=== PATIENT | male | born 1960 | race Caucasian/White ===

== ENCOUNTER 2018-04-15 10:00 | Outpatient (RCR) | payer MEDICAID, SELFPAY ==
--- NOTE | 2018-03-17 08:00 | PTTR_ITS ---
DATE: 03/17/18 SUBJECTIVE: Doing well with current exercises and feels like he is getting stronger. OBJECTIVE: Manual therapy: (92379p4). Mobilization of lumbopelvic region consisting of stretching of hamstrings, SKTC , piriformis, ITB and prone quads and hip flexors for 3 reps each x 20 seconds. STM to bilateral LB paraspinals and pelvic brim. Grade 1/2 PA mobs to lumbar vertebrae while in prone. Therapeutic procedures (79863o6). * x See flow sheet: Focus on core / hip stabilizers in supine, prone and quadruped on therapy ball. Upgraded planks to extended elbows today without complaints. * x Provided skilled instruction in proper exercise performance * x Provided skilled manual cues to facilitate proper muscle recruitment and/ or movement pattern * Ended session with spot cold to low back vertebrae and global MHP x 12 minutes while in prone position, at no charge. Direct treatment time: 50 minutes Total treatment time: 60 minutes
--- NOTE | 2018-03-19 09:30 | PTTR_ITS ---
DATE: 03/19/18 SUBJECTIVE: Drew indicates that he continues to note improvement being made with his PT treatments. Continues to note stiffness that seems to be less intense and less often. Manual therapy: (75251h6). Did receive soft tissue stretching of bilateral hamstrings, single knee to chest, piriformis, ITB in prone quad hip flexor stretching for 3 reps x20-30 seconds each, soft tissue mobilization throughout the low back was performed while in prone position utilizing tendon massage along the lumbar vertebra, iliac crest and cross friction to bilateral paraspinals. Utilization of grade 2 PA mobs throughout the lumbar region was also performed. Therapeutic procedures (20920c7). * x See flow sheet: for details. Did perform 10 reps of prone push up at start of his program. Focus of Therex activities was core stabilization * x Provided skilled instruction in proper exercise performance: * x Provided skilled manual cues to facilitate proper muscle recruitment and/ or movement pattern: He did perform an addition of 15 mins of wellness with assistive personnel. Ended with spot cold to the low back with moist heat throughout remaining mid to low back x12 mins in prone position at no charge. Direct treatment time: 30 mins Total treatment time: 55 mins SG/dl
--- NOTE | 2018-03-23 15:45 | PTTR_ITS ---
DATE: 03/23/18 SUBJECTIVE: Indicated he is continuing to note progress with his with his strength and core stability with ongoing PT services. Under a lot of stress at home with family issues, he knows that this influences his back irritation. OBJECTIVE: Manual therapy: (10065o9). Soft tissue stretching of bilateral hamstrings, SKTC, piriformis, ITB and prone quad and hip flexor stretches. STM to bilateral LB paraspinals and pelvic brim utilizing tendon massage and CFM. Transitioned to prone for grade 2 PA mobs to lumbar vertebrae. Performed 10 reps of prone press ups prior to continuing with ther ex. Therapeutic procedures ([id number]). * x HEP review: Instructed to add prone superman exercise to HEP. * x See flow sheet: Focus on core and hip stabilization. Added treadmill and standing posturals to program today. * x Provided skilled instruction in proper exercise performance * x Provided skilled manual cues to facilitate proper muscle recruitment and/ or movement pattern * Ended session with spot cold to low back with global MHP to surrounding tissue x 10 minutes. Direct treatment time: 50 minutes Total treatment time: 60 minutes
--- NOTE | 2018-03-26 11:15 | PTTR_ITS ---
DATE: 03/26/18 SUBJECTIVE: Patient arrived 15 minutes late to appointment. Reports he feels like he is 75% better since starting PT. He has no pain and no symptoms down the legs. He feels like he is more flexible but still feels stiff. He states he can now sit, stand, and walk for about an hour before his back starts bothering him. He states driving is okay. Still has difficulty with gardening and cleaning. He states he feels like his symptoms are still associated with his psychological symptoms. He has been compliant with his HEP. OBJECTIVE: Manual therapy: ([id number]). Performed single knee to chest, hamstring, ITB, piriformis, and hip flexor/quadriceps stretches in modified Forrest position. Held on all STM due to level of improvement. Therapeutic procedures (06387c1). [X] HEP review: Patient instructed to add superman s and bridges to HEP. [X] See flow sheet: Continued progressing core stabilization program. [X] Provided skilled instruction in proper exercise performance: for proper body mechanics. [X] Provided skilled manual cues to facilitate proper muscle recruitment and/or movement pattern: Moist heat pack with cold spot x 10 minutes to lower back in prone. Instructed to follow up one time next week. Direct treatment time: 30 minutes Total treatment time: 40 minutes Bindu Barth, SPT Yessy Fuller,MPT
--- NOTE | 2018-04-02 14:30 | PTTR_ITS ---
DATE: 04/02/18 SUBJECTIVE: Drew indicates today that he continues to hold up fairly well. Was complaining of sensitivity in the ball of his R foot which comes and goes, questions whether this is due to its footwear, currently does not own a pair of sneakers due to financial issues. Does have a pair of orthotics that was made for him several years ago, but has not really been wearing them due to going barefooted most of the summer. Manual therapy: (95587p0). Did receive mobilization of the lumbopelvic region including single knee to chest, stretching of the hamstring, ITB, piriformis and Forrest test position, or modified Forrest test position, hip flexor, quadricep stretches for 3 reps x20-30 seconds each. Therapeutic procedures (92734o2). * x5 See flow sheet: focus was on core and hip stabilization exercises. * X Provided skilled instruction in proper exercise performance: * X Provided skilled manual cues to facilitate proper muscle recruitment and/ or movement pattern: Did also incorporate standing UBE activity today with core engagement x6 mins. Ended treatment with spot cold to the low back with global moist heat throughout the mid to low back region x10 mins while in prone. Has been instructed to schedule for 1 time next week for continued instruction in core stabilization program. Direct treatment time: 45 mins Total treatment time: 55 mins SG/dl
--- NOTE | 2018-04-09 13:28 | NT_ITS ---
April 09, 2018 Drew contacted dept for he was going to be 15 minutes late for his scheduled appt. Questioned if this was going to work for our schedule. Rescheduled due to the conflict in schedule.
--- NOTE | 2018-04-15 10:15 | PTTR_ITS ---
DATE: April 15, 2018 SUBJECTIVE: Drew reports 80% improvement since beginning PT. He notes of occasional irritation into his right hip and knee however otherwise has been managing his symptoms well with HEP. He feels that he has returned to his normal level of activities. OBJECTIVE: Patient showed 15 minutes late for todays scheduled appt. Manual therapy: Upon reassessment demonstrates WNL lumbopelvic ROM. Demonstrates 5/5 LE strength. He is able to heel and toe walk without dysfunction. Therapeutic procedures ([id number]). * X HEP review: Upgraded HEP to incorporate PRE for his core musculature. See handouts in chart. Issued resistance bands to proximal hip stability and global LE strengthening. * X Provided skilled instruction in proper exercise performance: promoting body mechanics and postural awareness. * Provided skilled manual cues to facilitate proper muscle recruitment and/ or movement pattern: avoiding compensatory movement patterns. Issued some distal ITB stretches and recommended use of a foam roller for self mobilization of the right ITB. At this time feel that Drew can proceed with strong HEP. Plan to discharge from our care at this time. Direct treatment time: 15 minutes Total treatment time: 15 minutes
== END 2018-04-16 23:59 | disposition home or self-care (01) ==
LOC: PT 10:00
PROVIDERS: PCP Nurse Practitioner; Referring Provider Nurse Practitioner; Visit Provider Nurse Practitioner
DX: M54.5 Low back pain (principal); M54.16 Radiculopathy, lumbar region
CPT/HCPCS: 97110; 97140

== ENCOUNTER 2019-02-10 00:26 | Outpatient (CLI) | payer MEDICAID, SELFPAY ==
--- NOTE | 2019-02-10 08:30 | ETT_ITS ---
*[facility]* *[facility]* [address] [place] [address] Stress Electrocardiography Bharat protocol Date of study: 02/10/2019 *PATIENT PRESENTATION* Height: 182.9cm (72in) Blood Pressure: Weight: 97.7kg (215lb) BSA: 2.25m^2 Referring physician: Petra Mckee Ordering physician: Petra Mckee Impressions: No ischemic EKG changes. Frequent PVC and nsVT runs. Very good exercise capacity. Summary: 1. Stress ECG conclusions: The stress ECG is negative. The specificity of this test is limited by resting ECG abnormalities. The sensitivity of this test is limited by significant motion artifact. Frequent ventricular ectopy. 2. Stress: The target heart rate was achieved. There is a normal resting blood pressure with an appropriate response to stress. The patient experienced no chest pain during stress. Exercise capacity is above normal for age. Indication: R94.31. History: REASON FOR VISIT: ABNORMAL EKG. PT DENIES ANY HISTORY OF CHEST PAINS/PRESSURE. PT REPORTS HE IS CURRENTLY ON DISABILITY ALTHOUGH IS PHYSICALLY ACTIVE. Risk factors: [employer]NA [employer]. FATHER OF A MYOCARDIAL INFARCTION IN HIS EARLY 60'S. Family history of coronary artery disease. Current tobacco use. Diabetes mellitus. Cholesterol: 195mg/dl. HDL: 51mg/dl. LDL: 130mg/dl. Triglycerides: 63mg/dl. ALLERGIES: NO KNOWN DRUG ALLERGIES. MEDICATIONS: LEXAPRO 20 MG DAILY. Protocol: Bharat protocol. Baseline ECG: SINUS BRADYCARDIA. HR 47 BPM. Stress protocol: + +---+ + !Stage !HR !BP (mmHg) ! + +---+ + !Baseline supine !47 !130/76 (94) ! + +---+ + !Baseline standing !52 !130/78 (95) ! + +---+ + !Stage I; 1.7mph, 10degrees; 3 min !76 !142/80 (101)! + +---+ + !Stage II; 2.5mph, 12degrees; 3 min !89 !148/82 (104)! + +---+ + !Stage III; 3.4mph, 14degrees; 3 min!113!166/78 (107)! + +---+ + !Stage IV; 4.2mph, 16degrees; 3 min !124!178/80 (113)! + +---+ + !Stage V; 5mph, 18degrees; 3 min !152! ! + +---+ + !Peak stress !156! ! + +---+ + !Recovery; 1 min !108!200/80 (120)! + +---+ + !Recovery; 3 min !82 !160/62 (95) ! + +---+ + !Recovery; 7 min !75 !140/82 (101)! + +---+ + * Stress results: Maximal heart rate during stress was 156bpm (95% of maximal predicted heart rate). The maximal predicted heart rate was 164bpm. The target heart rate was achieved. There is a normal resting blood pressure with an appropriate response to stress. The rate-pressure product for the peak heart rate and blood pressure was 46881nq Hg/min. The patient experienced no chest pain during stress. Exercise capacity is above normal for age. Stress ECG: TREADMILL PORTION OF STRESS TEST ENDED IN 14 MINUTES & 1 SECOND. NORMAL HEART RATE AND BLOOD PRESSURE RESPONSE TO EXERCISE MAX HR = 156 % OF TARGET = 95 FREQUENT PVCs IN COUPLETS AND RUNS. 6 BEAT RUNS OF V-TACH NOTED AT 2 MINUTES RECOVERY TIME. APPROXIMATE METS ACHIEVED = 14.86 NO ANGINA NO SIGNIFICANT ST SEGMENT CHANGES ABOVE AVERAGE FUNCTIONAL CAPACITY FOR EXERCISE The stress ECG is negative. The specificity of this test is limited by resting ECG abnormalities. The sensitivity of this test is limited by significant motion artifact. Frequent ventricular ectopy. Multiple episodes of nonsustained ventricular tachycardia. Study data: Devora Lo MD supervised and was readily available during the procedure. This study was interpreted by [facility]. Study status: Routine. Consent: The risks, benefits, and alternatives to the procedure were explained to the patient and informed consent was obtained. Procedure: Initial setup. A baseline ECG was recorded. Surface ECG leads and manual cuff blood pressure measurements were monitored. Heart sounds: Normal. Lung sounds: Normal. Treadmill exercise testing was performed using the Bharat protocol. Study completion: The patient tolerated the procedure well and was discharged from the lab. Discharge: The patient left the laboratory in stable condition. Birthdate: Patient birthdate: 1960. Sex: Gender: male. Study date: Study date: 02/10/2019. Study time: 00:01 AM. Signature Documentation: The Stress ECG portion of this study was interpreted by Devora Lo MD. Electronically signed by Devora Lo 02/10/2019 16:47
[2019-02-10 08:43] LABS: HCT 45.5 % (40.0-50.0); HGB 15.3 g/dL (13.5-17.5); Mean Corp. HGB Concentration 33.6 g/dL (32.0-36.0); Mean Corpuscular Hemoglobin 29.5 pg (27.0-33.0); Mean Corpuscular Volume 87.8 fL (80-95); Mean Platelet Volume 9.1 fL (8.0-11.0); Platelet Count 261 x1000/uL (130-400); RBC 5.18 m/cumm (4.50-6.00); RBC Distribution Width 13.1 % (11.8-14.1)
[2019-02-10 09:41] LABS: Hemoglobin A1C 5.8 % (4.5-6.2)
[2019-02-10 09:52] LABS: ALT 26 U/L (12-78); AST 15 U/L (15-37); Albumin 3.8 g/dL (3.4-5.0); Alkaline Phosphatase 59 U/L (46-116); BUN 21 mg/dL (7-18); Bilirubin, Total 0.3 mg/dL (0.2-1.0); CREATININE 0.93 mg/dL (0.70-1.30); Calcium 8.6 mg/dL (8.5-10.1); Calculated LDL 152 mg/dL; Chloride 107 mmol/L (98-107); Cholesterol 216 mg/dL (50-200); Glucose 110 mg/dL (70-100); HDL Cholesterol 39 mg/dL (40-60); Potassium 4.8 mmol/L (3.5-5.1); Sodium 141 mmol/L (136-145); TSH (W/Ref FT4) 3.62 uIU/mL (0.358-3.74); Total Protein 6.7 g/dL (6.4-8.2); Triglyceride 129 mg/dL (30-150)
[2019-02-10 09:58] LABS: Vitamin D 25 Total 37.4 ng/ml (30-100)
[2019-02-14 09:24] LABS: Testosterone, Total 480 ng/dL (240-950)
== END 2019-02-10 00:46 ==
PROVIDERS: PCP Nurse Practitioner; Visit Provider Nurse Practitioner
DX: R94.31 Abnormal electrocardiogram [ECG] [EKG] (principal); E78.00 Pure hypercholesterolemia, unspecified; F41.9 Anxiety disorder, unspecified; N52.9 Male erectile dysfunction, unspecified; I10 Essential (primary) hypertension; E11.9 Type 2 diabetes mellitus without complications; E55.9 Vitamin D deficiency, unspecified; F17.200 Nicotine dependence, unspecified, uncomplicated; Z82.49 Family history of ischemic heart disease and other diseases of the circulatory system
CPT/HCPCS: 36415; 80053; 80061; 82306; 83721; 84403; 85027; 83036; 84443; 93017

== ENCOUNTER → 2020-03-20 10:32 | Outpatient (BNVA) | payer MEDICARE, MEDICAID, SELFPAY | PROVIDERS: PCP Nurse Practitioner; Referring Provider Nurse Practitioner; Visit Provider Urology | DX: R39.89 Other symptoms and signs involving the genitourinary system | CPT/HCPCS: 99442 ==

== ENCOUNTER 2020-04-01 18:10 | Emergency (ER) | payer MEDICARE, MEDICAID, SELFPAY ==
[2020-04-01] VITALS (62 sets, daily range): BP systolic 94–178; BP diastolic 40–86; PULSE 42–98; RESP 9–25; TEMP 36.5–36.6; O2SAT 96–99
--- NOTE | 2020-04-01 18:00 | RT.EKG_ITS ---
APPROVED REPORT Exam: Resting ECG Patient Location: E HR:50 bpm ECG Measurements Heart Rate 50 AXIS MI 177 P 43 QRSd 97 QRS -17 QT 417 T 21 QTc 379 Conclusion Sinus bradycardia.rate 50, Low voltage, extremity leads...all extremity leads inferior q wave
--- NOTE | 2020-04-01 18:15 | DI.RAD_ITS ---
EXAM: XR CHEST 2V PA LATERAL CLINICAL HISTORY: CP/SOB TECHNIQUE: 2D digital imaging was performed. COMPARISON: No exams were available for comparison FINDINGS: MEDIASTINUM: Normal. HEART: Normal. PULMONARY VASCULATURE: Normal. LUNGS: Clear. PLEURAL SPACE: No pleural effusion or pneumothorax. BONE:Normal. OTHER FINDINGS:Normal. IMPRESSION: No acute pulmonary findings. DATA REPOSITORY: RADIATION DOSE DELIVERED:
[2020-04-01 18:36] LABS: Abs Immature Grans 0.04 10^3/uL (0.0-0.06); Absolute Basophil Count 0.02 10^3/uL (0.0-0.2); Absolute Eosinophil Count 0.05 10^3/uL (0.0-0.7); Absolute Lymphocyte Count 1.74 10^3/uL (1.2-3.4); Absolute Monocyte Count 0.66 10^3/uL (0.1-0.8); Absolute Neutrophil Count 6.79 10^3/uL (1.2-6.7); Basophils % 0.2; Eosinophils % 0.5; HCT 44.6 % (40.0-50.0); HGB 15.1 g/dL (13.5-17.5); Immature Grans % 0.4; Lymphocytes % 18.7; MCH 29.5 pg (27.0-33.0); MCHC 33.9 % (32.0-36.0); MCV 87.1 fL (80-95); MPV 9.1 fL (8.0-11.0); Monocytes % 7.1; Neutrophils % 73.1; Nucleated RBC 0 %; Platelet Count 258 10^3/uL (130-400); RBC 5.12 10^6/uL (4.36-5.78); RDW 11.7 % (11.8-14.1); RDW-SD 37.9 fL
--- NOTE | 2020-04-01 18:46 | W.ED.GENAD ---
Discharge Plan Disposition Patient Disposition: [facility] Condition: Serious Discharge Details Chief Complaint: Chest Pain Clinical Impression: Non-ST elevation WI (NSTEMI) Primary Care Provider: Petra Mckee ED Provider: Aj Grace Home Meds and New Rx's Prescriptions: No Action escitalopram oxalate 10 mg tablet 10 mg PO DAILY Qty: 90 RF: 3 ibuprofen 400 mg tablet 400 mg PO Q6H PRN Qty: 120 RF: 3 tadalafil [Cialis] 20 mg tablet 20 mg PO DAILY PRN (Reason: sexual activity) Qty: 30 RF: 3 Medical Decision Making <Richard Marshall MD - Last Filed: 04/01/20 19:42> 59-year-old male who states he has had intermittent episodes of anterior chest tightness and pressure that seems to be worse with exertion over 2 to 3 weeks time. At times seems to be associated with exertional dyspnea that resolves with rest. No syncope. No recent illness. States to me that he no longer is taking prescribed medications, currently only using medical marijuana which he states he is eating. Note his medical problems include adjustment disorder, depression, anxiety, PTSD. He is afebrile and well-appearing. He has history of bradycardia in the past. Initial EKG shows inferior Q waves but no acute ST segment elevation and is unchanged versus comparison from February 07, 2019. Records reviewed including exercise stress test from February 10, 2019 which was negative but did note frequent PVCs. Patient placed on a special events manager, IV access established, referred for chest x-ray and laboratory testing: CBC, chemistries unremarkable. Troponin negative and his BNP is 137. Chest x-ray without acute findings. Patient to be observed and repeat/interval troponin obtained. Will sign the patient out to Dr. Grace, please see his note. Lab Data Lab results reviewed: Yes I reviewed the patient's lab results. Labs: Laboratory Results - last 24 hr 04/01/20 04/01/20 18:18 18:18 WBC 9.30 RBC 5.12 Hgb 15.1 Hct 44.6 MCV 87.1 MCH 29.5 MCHC 33.9 RDW 11.7 L Plt Count 258 MPV 9.1 Immature Gran % 0.4 Neutrophils % 73.1 Lymphocytes % 18.7 Monocytes % 7.1 Eosinophils % 0.5 Basophils % 0.2 Absolute Neutrophils 6.79 H Absolute Lymphocytes 1.74 Absolute Monocytes 0.66 Absolute Eosinophils 0.05 Absolute Basophils 0.02 Sodium 139 Potassium 4.0 Chloride 103 Carbon Dioxide 26.8 Anion Gap 9.2 BUN 10 Creatinine 0.84 Estimated GFR/1.73 m2 >= 60.00 Glucose 106 Calcium 9.0 Magnesium 2.1 Total Bilirubin 0.7 AST 21 ALT 23 Alkaline Phosphatase 42 L Troponin I 0.06 NT-Pro-B Natriuret Pep 137 Total Protein 7.4 Albumin 4.2 <Aj Grace, - Last Filed: 04/01/20 23:40> Case was signed out to me by my colleague Dr. Richard Marshall, please refer to his HPI, physical exam assessment and plan. At time of signout plan was to reevaluate after repeat EKG and repeat troponin. 4-hour troponin has returned, slightly elevated at 0.08, which is trending upwards. With the patient history of exertional shortness of breath and chest pain over the last few months notably worsening, climaxing over the last few days with a notably low threshold now for this exertional shortness of breath and chest pain I do feel that the patient is transitioning from a stable angina picture to an unstable angina picture. Repeat EKG is negative for acute change. Patient will be given full dose aspirin. Will contact [facility] for potential transfer. Currently the patient is without any chest pain or shortness of breath but even recently when getting up to go to the bathroom his symptoms resolved without mild exertion. The patient's cardiac risk factors include age, known high cholesterol, and medicinal marijuana use. 11:30 PM I have contacted [facility] and have spoken with Dr. Rodriguez, after discussion of the clinical picture he feels that it would be best to have the patient transferred for further cardiac evaluation, of which I agree. He does recommend giving 180 mg of Brilinta, 80 mg of atorvastatin, doing a heparin bolus and infusion. Of which will all start here. [facility] is unavailable for transport, the patient will be transported via [employer] to [facility]. I have extensively reviewed the treatment plan with the patient. I have addressed all patient concerns at this time. I have also discussed the plan with the admitting physician and they agree with the current assessment and plan and have agreed to assume responsibility for the patient. All parties demonstrate verbal understanding and agreement with our assessment and plan at this time. At time of transfer the patient was reassessed and continued to demonstrate current medical stability. No signs of acute respiratory distress requiring intubation, hemodynamic instability requiring pressor support, or rapidly declining mental status. The patient is stable for transport. EKG 22: 04 Sinus bradycardia, intervals normal, no significant ST elevations or depressions, no evidence of STEMI, small Q waves in lead III and aVF, no evidence of acute change. No evidence of de-Hoffman T waves, or Wellens syndrome. HPI <Richard Marshall MD - Last Filed: 04/01/20 19:42> General Mode of arrival: ambulatory. Date/Time Provider Initiated Documentation: 04/01/20 18:14. Limitations to Documentation: no limitations. Information obtained by: patient. History of Present Illness 59 year old M presents to the emergency department with the chief complaint of Chest pressure, I think it is angina, described as mild, and is localized to the chest. Patient reports no radiation. Patient started experiencing this day(s) and it has been intermittent. Rest improves symptom(s), Movement worsens symptoms . Patient notes denies syncope. Patient did receive the following treatments prior to arrival, none Related Data Home Medications Medication Instructions Recorded Confirmed escitalopram oxalate 10 mg tablet 10 mg PO DAILY #90 tab-cap 04/11/19 04/01/20 ibuprofen 400 mg tablet 400 mg PO Q6H PRN #120 tab-cap 04/11/19 04/01/20 tadalafil 20 mg tablet 20 mg PO DAILY PRN #30 tab 09/19/19 04/01/20 Previous Rx's Medication Instructions Recorded escitalopram oxalate 10 mg tablet 10 mg PO DAILY #90 tab-cap 04/11/19 ibuprofen 400 mg tablet 400 mg PO Q6H PRN #120 tab-cap 04/11/19 tadalafil 20 mg tablet 20 mg PO DAILY PRN #30 tab 09/19/19 Allergies Allergy/AdvReac Type Severity Reaction Status Date / Time No Known Drug Allergies Allergy Verified 04/01/20 18:18 General Stated Complaint: Chest Pain OSMEL: 3 Review of Systems <Richard Marshall MD - Last Filed: 04/01/20 19:42> Narrative: Currently only taking medical marijuana as he states he is not taking other prescribed medications. No syncope. No fever or chills, no cough. 8 systems were reviewed and otherwise negative. PFSH <Richard Marshall MD - Last Filed: 04/01/20 19:42> Medical History Adjustment disorder with mixed anxiety and depressed mood (Chronic 02/02/17) Anxiety Depression Depression (Chronic 03/19/17) Lower urinary tract symptoms (LUTS) (Acute) Surgical History Appendectomy Arthroplasty of knee Colonoscopy - MAC (04/13/17) L hand surgery (08/17/87) Family History Mother Diabetes Father , [place] Heart disease Sister No problems noted. Sister No problems noted. Sister No problems noted. Sister No problems noted. Sister No problems noted. Brother No problems noted. Brother No problems noted. Brother No problems noted. Brother No problems noted. Brother No problems noted. Social History Smoking/Tobacco Use Status: Never Alcohol Intake: current Alcohol Intake frequency: a few times a week Drug use: Daily Substance use type: marijuana Household members: children Housing: house Number of Children: 3 Communication Needs: Corrective Lenses current occupation: Disabled Pets and animals: Yes Pets and animals: dog(s) What is your relationship status?: Panel score (0-1 are the most socially isolated patients): 0 What type of physical activity do you participate in: regular exercise Duration: 30-45 minutes/day Frequency: daily Seatbelt use: always Water heater temp set <120 deg: Yes Working smoke detector in home: Yes Fire extinguisher in home: Yes Carbon monox detector in home: Yes Firearms in home: Yes Firearms unloaded and locked: No Do you feel safe at home: Yes Exam <Richard Marshall MD - Last Filed: 04/01/20 19:42> Narrative Exam Narrative: GEN: awake, alert, oriented 3. Pleasant, well groomed, interactive. HEAD: Normocephalic, atraumatic ENT: Mucous membranes moist, oropharynx unremarkable, External ear exam unremarkable EYES: PERRL, EOMI NECK: Full ROM, no TAURUS, no menigismus CHEST/RESP: Nontender, clear to auscultation bilateral, no wheeze/rhonchi/rales CARDIOVASCULAR: RRR, no murmur, rub ally. 2+ Rad pulse bilateral ABDOMEN: Soft, nontender, no mass. +Bowel sounds EXT: Full ROM, no edema, no rash Neuro: Grossly normal neurologic exam, conversant, interactive. Psych: Speech fluent, thoughts congruent, affect bizarre at times Course <Richard Marshall MD - Last Filed: 04/01/20 19:42> Vital Signs Vital signs: Vital Signs Temperature 36.5 C 04/01/20 18:13 Pulse 51 L 04/01/20 18:13 Respiratory Rate 18 04/01/20 18:13 Blood Pressure 145/71 H 04/01/20 18:13 Pulse Oximetry 98 04/01/20 18:13 Temperature 36.5 C 04/01/20 18:13 Temperature Source Temporal Artery Scan 04/01/20 18:13 Pulse 51 L 04/01/20 18:13 Respiratory Rate 15 04/01/20 18:20 Respiratory Effort Non-Labored 04/01/20 18:20 Respiratory Depth Normal 04/01/20 18:20 Respiratory Pattern Normal 04/01/20 18:20 Blood Pressure 145/71 H 04/01/20 18:13 Blood Pressure Position Sitting 04/01/20 18:13 Pulse Oximetry 98 04/01/20 18:13 Oxygen Delivery Method Room Air 04/01/20 18:13 Oxygen Flow Rate 0 04/01/20 18:13 Pain Level 0 04/01/20 18:13 Lab/Test Results Lab/Test Results: Laboratory Tests Range/Units 04/01/20 18:18 WBC (4.4-10.8) 10^3/uL 9.30 RBC (4.36-5.78) 10^6/uL 5.12 Hgb (13.5-17.5) g/dL 15.1 Hct (40.0-50.0) % 44.6 MCV (80-95) fL 87.1 MCH (27.0-33.0) pg 29.5 MCHC (32.0-36.0) % 33.9 RDW (11.8-14.1) % 11.7 L Plt Count (130-400) 10^3/uL 258 MPV (8.0-11.0) fL 9.1 Immature Gran % 0.4 Neutrophils % 73.1 Lymphocytes % 18.7 Monocytes % 7.1 Eosinophils % 0.5 Basophils % 0.2 Absolute Neutrophils (1.2-6.7) 10^3/uL 6.79 H Absolute Lymphocytes (1.2-3.4) 10^3/uL 1.74 Absolute Monocytes (0.1-0.8) 10^3/uL 0.66 Absolute Eosinophils (0.0-0.7) 10^3/uL 0.05 Absolute Basophils (0.0-0.2) 10^3/uL 0.02 Sign Out <Richard Marshall MD - Last Filed: 04/01/20 19:42> Sign Out Data: Sign Out Comment: Followup repeat troponin Last updated by Richard Marshall MD at 04/01/20 19:38
[2020-04-01 18:53] LABS: ALT 23 U/L (16-63); AST 21 U/L (15-37); Albumin 4.2 g/dL (3.4-5.0); Alkaline Phosphatase 42 U/L (46-116); Anion Gap 9.2 mmol/L (3-11); BUN 10 mg/dL (7-18); Bilirubin, Total 0.7 mg/dL (0.2-1.0); CO2 26.8 mmol/L (21.0-32.0); CREATININE 0.84 mg/dL (0.70-1.30); Chloride 103 mmol/L (98-107); Glucose 106 mg/dL (74-106); Magnesium 2.1 mg/dL (1.8-2.4); NT-proBNP 137 pg/mL (<300); Sodium 139 mmol/L (136-145); Total Protein 7.4 g/dL (6.4-8.2); Troponin I 0.06 ng/mL (<0.06)
--- NOTE | 2020-04-01 19:04 | DI.VRAD_ITS ---
PROCEDURE INFORMATION: Exam: XR Chest, 2 Views Exam date and time: 04/01/2020 6:53 PM Age: 59 years old Clinical indication: Condition or disease; Other: Angina TECHNIQUE: Imaging protocol: XR of the chest Views: 2 views. COMPARISON: No relevant prior studies available. FINDINGS: Lungs: Unremarkable. No consolidation. Pleural space: Unremarkable. No pleural effusion. No pneumothorax. Heart/Mediastinum: Unremarkable. No cardiomegaly. Bones/joints: Unremarkable. IMPRESSION: No acute findings. Dictated and Authenticated by: Timbo Leigh MD. Ordering:BRENDA Ramos MD
--- NOTE | 2020-04-01 21:45 | RT.EKG_ITS ---
APPROVED REPORT Exam: Resting ECG Patient Location: E HR:43 bpm ECG Measurements Heart Rate 43 AXIS [place] 194 P 54 QRSd 100 QRS 21 QT 428 T 35 QTc 364 Conclusion EKG 22: 04 Sinus bradycardia, intervals normal, no significant ST elevations or depressions, no evidence of STEM I, small Q waves in lead III and aVF, no evidence of acute change. No evidence of de-Hoffman T waves , or Wellens syndrome.
[2020-04-01 22:48] LABS: Troponin I 0.08 ng/mL (<0.06)
[2020-04-01] MEDS: Aspirin 325 MG TAB PO (23:01)
--- NOTE | 2020-04-01 23:45 | RT.EKG_ITS ---
APPROVED REPORT Exam: Resting ECG Patient Location: E HR:65 bpm ECG Measurements Heart Rate 65 AXIS [place] 173 P 48 QRSd 100 QRS 37 QT 403 T 13 QTc 418 Conclusion Sinus rhythm...normal P axis, V-rate 60- 99 Inferior infarct, old...Q >35mS, II III aVF
[2020-04-01 23:49] LABS: INR 1.1 (0.9-1.1); PTT Activated 24.1 sec (21.0-31.4); Prothrombin Time 10.6 sec (9.3-11.0)
[2020-04-01] MEDS: nitroGLYcerin 0.4 MG TAB SL (23:49)
[2020-04-01] MEDS: Atorvastatin 40 MG TAB 80 MG PO (23:49)
[2020-04-01] MEDS: Ticagrelor 90 MG TAB 180 MG PO ×2 (23:50)
[2020-04-02] VITALS (8 sets, daily range): BP systolic 112–133; BP diastolic 61–72; PULSE 62–73
[2020-04-02] MEDS: LORazepam 2 MG/ML VIAL 1 MG IVP (00:03)
== END 2020-04-02 01:10 | disposition short-term general hospital (02) ==
PROVIDERS: Emergency Medicine; Emergency Provider Student in an Organized Health Care Education/Training Program; PCP Nurse Practitioner
DX: I21.4 Non-ST elevation (NSTEMI) myocardial infarction (principal); R00.1 Bradycardia, unspecified; R07.9 Chest pain, unspecified; R06.00 Dyspnea, unspecified; Z91.128 Patient's intentional underdosing of medication regimen for other reason
CPT/HCPCS: 36415; 80053; 93005; 96365; 96375; 96376; 99285; 71046; 83735; 83880; 84484; 85025; 85610; 85730; 93010; J2060; J3490

== ENCOUNTER → 2020-05-10 11:16 | Outpatient (BNVA) | payer MEDICARE, MEDICAID, SELFPAY | PROVIDERS: PCP Nurse Practitioner; Referring Provider Nurse Practitioner; Visit Provider Internal Medicine Cardiovascular Disease | DX: I25.10 Atherosclerotic heart disease of native coronary artery without angina pectoris (principal); I21.4 Non-ST elevation (NSTEMI) myocardial infarction; Z95.5 Presence of coronary angioplasty implant and graft | CPT/HCPCS: 99204; 99215 ==

== ENCOUNTER → 2020-10-23 14:05 | Outpatient (BNVA) | payer MEDICARE, MEDICAID, SELFPAY | PROVIDERS: PCP Nurse Practitioner; Referring Provider Nurse Practitioner; Visit Provider Nurse Practitioner Gerontology | DX: R35.0 Frequency of micturition (principal); R39.15 Urgency of urination; Z30.09 Encounter for other general counseling and advice on contraception | CPT/HCPCS: 99213 ==

== ENCOUNTER → 2021-03-19 10:27 | Outpatient (BNVA) | payer MEDICARE, MEDICAID, SELFPAY | PROVIDERS: PCP Nurse Practitioner; Referring Provider Nurse Practitioner; Visit Provider Urology | DX: R39.89 Other symptoms and signs involving the genitourinary system (principal) | CPT/HCPCS: 99213 ==

== ENCOUNTER 2021-05-01 02:54 | Outpatient (CLI) | payer MEDICARE, MEDICAID, SELFPAY ==
[2021-05-01 08:40] LABS: HGB 14.9 g/dL (13.5-17.5); MCH 29.1 pg (27.0-33.0); MCHC 33.1 % (32.0-36.0); MCV 87.9 fL (80-95); MPV 8.9 fL (8.0-11.0); Platelet Count 260 10^3/uL (130-400); RBC 5.12 10^6/uL (4.36-5.78); RDW 11.9 % (11.8-14.1); RDW-SD 38.1 fL; WBC 5.88 10^3/uL (4.4-10.8)
[2021-05-01 08:57] LABS: Hemoglobin A1C 5.7 % (<5.7)
[2021-05-01 09:40] LABS: ALT 45 U/L (16-63); AST 25 U/L (15-37); Albumin 4.1 g/dL (3.4-5.0); Alkaline Phosphatase 58 U/L (46-116); Anion Gap 9.9 mmol/L (3-11); BUN 15 mg/dL (7-18); Bilirubin, Total 0.4 mg/dL (0.2-1.0); CO2 26.1 mmol/L (21.0-32.0); Calcium 8.8 mg/dL (8.5-10.1); Calculated LDL 124 mg/dL (<100); Chloride 106 mmol/L (98-107); Cholesterol 186 mg/dL (<200); Glucose 112 mg/dL (74-106); HDL Cholesterol 33 mg/dL (40-60); Potassium 4.6 mmol/L (3.5-5.1); Sodium 142 mmol/L (136-145); Total Protein 6.8 g/dL (6.4-8.2); Triglyceride 149 mg/dL (<150)
== END 2021-05-01 02:55 | disposition home or self-care (01) ==
LOC: LBO 02:54
PROVIDERS: PCP Nurse Practitioner; Visit Provider Nurse Practitioner
DX: E78.00 Pure hypercholesterolemia, unspecified; I25.10 Atherosclerotic heart disease of native coronary artery without angina pectoris; E11.9 Type 2 diabetes mellitus without complications; F43.10 Post-traumatic stress disorder, unspecified
CPT/HCPCS: 36415; 80053; 80061; 85027; 83036

== ENCOUNTER 2021-05-07 08:54 | Outpatient (CLI) | payer MEDICARE, MEDICAID, SELFPAY ==
--- NOTE | 2021-05-07 08:45 | RT.EKG_ITS ---
APPROVED REPORT Exam: Resting ECG Reason for Exam: CAD Patient Location: O HR:53 bpm ECG Measurements Heart Rate 53 AXIS MS 176 P 30 QRSd 94 QRS -15 QT 416 T 0 QTc 392 Conclusion Sinus bradycardia...rate< 60 Old anterior PA Low voltage
== END 2021-05-07 08:55 | disposition home or self-care (01) ==
LOC: DI.KIM 08:54
PROVIDERS: PCP Nurse Practitioner; Visit Provider Nurse Practitioner
DX: I25.10 Atherosclerotic heart disease of native coronary artery without angina pectoris (principal)
CPT/HCPCS: 93010

== ENCOUNTER → 2022-03-18 10:32 | Outpatient (BNVA) | payer MEDICARE, MEDICAID, SELFPAY | PROVIDERS: PCP Nurse Practitioner; Referring Provider Nurse Practitioner; Visit Provider Urology | DX: N40.1 Benign prostatic hyperplasia with lower urinary tract symptoms (principal); R35.0 Frequency of micturition; K40.90 Unilateral inguinal hernia, without obstruction or gangrene, not specified as recurrent; I25.10 Atherosclerotic heart disease of native coronary artery without angina pectoris; K63.5 Polyp of colon | CPT/HCPCS: 99214 ==

== ENCOUNTER → 2022-03-24 09:39 | Outpatient (BNVA) | payer MEDICARE, MEDICAID, SELFPAY | PROVIDERS: PCP Nurse Practitioner; Referring Provider Urology; Visit Provider Surgery | DX: Z86.010 Personal history of colon polyps (principal); I25.2 Old myocardial infarction; Z95.5 Presence of coronary angioplasty implant and graft; K46.9 Unspecified abdominal hernia without obstruction or gangrene; I25.10 Atherosclerotic heart disease of native coronary artery without angina pectoris | CPT/HCPCS: 99214 ==

== ENCOUNTER 2022-05-20 08:08 | Outpatient (CLI) | payer MEDICARE, MEDICAID, SELFPAY ==
--- NOTE | 2022-05-20 08:00 | RT.EKG_ITS ---
APPROVED REPORT Exam: Resting ECG Reason for Exam: pre op clearance Patient Location: O HR:81 bpm ECG Measurements Heart Rate 81 AXIS [place] 165 P 45 QRSd 131 QRS 51 QT 358 T 26 QTc 416 Conclusion Sinus rhythm...normal P axis, V-rate 50- 99 Ventricular premature complex...V complex w/ short R-R interval Low voltage Poor R wave progression
== END 2022-05-20 08:09 | disposition home or self-care (01) ==
LOC: DI.CARD 08:10
PROVIDERS: PCP Nurse Practitioner; Visit Provider Internal Medicine Cardiovascular Disease
DX: I25.10 Atherosclerotic heart disease of native coronary artery without angina pectoris (principal); R94.31 Abnormal electrocardiogram [ECG] [EKG]; Z01.818 Encounter for other preprocedural examination
CPT/HCPCS: 93010

== ENCOUNTER → 2022-05-20 09:47 | Outpatient (BNVA) | payer MEDICARE, MEDICAID, SELFPAY | PROVIDERS: PCP Nurse Practitioner; Referring Provider Nurse Practitioner; Visit Provider Internal Medicine Cardiovascular Disease | DX: I25.10 Atherosclerotic heart disease of native coronary artery without angina pectoris (principal); K40.90 Unilateral inguinal hernia, without obstruction or gangrene, not specified as recurrent | CPT/HCPCS: 93005; 99214; 99213 ==

== ENCOUNTER 2022-05-29 11:32 | Day surgery (SDC) | payer MEDICARE, MEDICAID, SELFPAY ==
--- NOTE | 2022-05-29 09:42 | W.PM.HP.N ---
Date of service: 05/29/22 Time of Service: 12:40 Assessment and Plan Assessment and plan (1) Encounter for colonoscopy due to history of colonic polyp: Status: Acute Assessment and plan: Proceed with screening colonoscopy History of Present Illness History of Present Illness Chief Complaint: Screening colonoscopy Narrative: Drew is 61 years old and has a past medical history that is most significant for coronary artery disease. He is presenting today for a routine screening colonoscopy. [facility] All Active Problems History of placement of stent in LAD coronary artery (Acute 04/02/20) CAD (coronary artery disease) (Chronic 04/02/20) one vessel (LAD) stented History of ST elevation myocardial infarction (STEMI) (Acute) Right inguinal hernia (Acute) Encounter for colonoscopy due to history of colonic polyp (Acute) Medical History Adjustment disorder with mixed anxiety and depressed mood (02/02/17) Anxiety (03/19/17) Complex tear of meniscus of right knee as current injury (02/09/17) Depression (03/19/17) Erectile dysfunction Foreign body (FB) in soft tissue History of retained foreign body fully removed Hypercholesterolemia Lower urinary tract symptoms (LUTS) Pre-operative clearance PTSD (post-traumatic stress disorder) (05/12/17) Routine general medical examination at a health care facility Sleep apnea pt states if If sleep on back I get apnea Splinter in skin Surgical History (Updated 05/29/22 @ 11:47 by Jesusita Alvarez) Appendectomy Arthroplasty of knee no TKA ..Arthroscopy right knee Colonoscopy - MAC (04/13/17) L hand surgery (08/17/87) Family History Mother Diabetes Father , [place] Heart disease Sister No problems noted. Sister No problems noted. Sister No problems noted. Sister No problems noted. Sister No problems noted. Brother No problems noted. Brother No problems noted. Brother No problems noted. Brother No problems noted. Brother No problems noted. Social History Smoking/Tobacco Use Status: Never Smoking risk assessment performed?: Yes Alcohol Intake: current Alcohol Intake frequency: a few times a week Drug use: Daily Substance use type: marijuana Adopted: No Caregiver/Support person: No Foster care: No Household members: children Housing: house Number of Children: 3 number of grandchildren: 0 Communication Needs: None Education Level: master's degree Do you need help understanding health information?: Rarely current occupation: Disability Pets and animals: Yes Pets and animals: dog(s) Sexually active: Yes Do you think of yourself as: bisexual Current gender identity: male What is your relationship status?: How often do you talk on the phone with friends or family?: once per week How often do you get together with friends or relatives?: once per week Do you belong to any clubs or organized social groups?: no Panel score (0-1 are the most socially isolated patients): 1 What type of physical activity do you participate in: walking, regular exercise and other Details: gardening Duration: 30-45 minutes/day Frequency: daily Seatbelt use: always Drive intox or ride w/intox sales route driver helper: No Water heater temp set <120 deg: Yes Working smoke detector in home: Yes Fire extinguisher in home: Yes Carbon monox detector in home: Yes Firearms in home: Yes Firearms unloaded and locked: No Do you feel safe at home: Yes Meds Allergies and Home Medications Allergies Allergy/AdvReac Type Severity Reaction Status Date / Time No Known Drug Allergies Allergy Verified 05/29/22 11:44 Home Medications Medication Instructions Recorded Confirmed Type ibuprofen 400 mg tablet 400 mg PO Q6H PRN #120 tab-caps 04/11/19 05/29/22 Rx aspirin 81 mg tablet,delayed 81 mg PO DAILY #90 tabs 04/08/21 05/28/22 Rx release (Adult Aspirin Regimen) tadalafil 20 mg tablet (Cialis) 20 mg PO DAILY PRN sexual activity 03/18/22 05/29/22 Rx #30 tabs tamsulosin 0.4 mg capsule 0.4 mg PO DAILY urination #90 caps 03/18/22 05/29/22 Rx Exam Const General: cooperative, healthy appearing and comfortable Orientation: awake and oriented x3 Eyes General: appearance normal, both eyes and all related structures Conjunctivae: conjunctivae normal Sclera: sclerae normal Resp Effort & Inspection: normal respiratory effort and able to speak in complete sentences Auscultation: clear to auscultation bilaterally Cardio Jugular venous pressure: no JVD Rate: regular rate Rhythm: regular rhythm GI Inspection: non-distended Palpation: soft, no guarding, no hernias and nontender Auscultation: normal bowel sounds Skin General skin exam: normal turgor Neuro General: patient alert, patient awake and patient oriented x3 Cognition: normal cognition Extrem Right lower extremity: no edema Left lower extremity: no edema
--- NOTE | 2022-05-29 10:05 | W.PM.DSUDISC ---
Discharge Plan Disposition Patient Disposition: HOME Condition: Good Discharge Details Reason For Visit: Screening colonoscopy Attending Provider: Jesus Roblero Primary Care Provider: Petra Mckee Home Meds and New Rx's Prescriptions: Continued ibuprofen 400 mg tablet 400 mg PO Q6H PRN Qty: 120 3RF Hold Instructions: Home Medication placed on hold at Doctor's office tamsulosin 0.4 mg capsule 0.4 mg PO DAILY Qty: 90 4RF tadalafil [Cialis] 20 mg tablet 20 mg PO DAILY PRN (Reason: sexual activity) Qty: 30 5RF Rx Instructions: administer approximately 30min before sexual activity; do not use more than 1 dose per 24hrs aspirin [Adult Aspirin Regimen] 81 mg tablet,delayed release (DR/EC) 81 mg PO DAILY Qty: 90 3RF Discharge Instructions Instructions: Colorectal Polyps (GEN) Additional Instructions: 1. If tolerated, consume a soft, low fiber diet for 1-2 days. 2[address] Do not drive, drink alcohol, operate machinery, make critical decisions, or do activities that require coordination or balance for 24 hours. 3. Because air was put into your colon during the procedure, expelling air from your rectum (passing gas or farting) is normal. 4. You may not have a bowel movement for 1-3 days because of the colonoscopy prep. This is normal. 5. Go directly to the emergency room if you notice any of the following: Develop chills (warm to touch), or if you have a thermometer and your temperature is above 101 Difficulty breathing or difficultly swallowing Persistent vomiting Severe abdominal pain, other than gas cramps Severe chest pain Black, tarry stools Any bleeding ? exceeding one tablespoon 6. Call your physician if the site where your intravenous was started becomes red, swollen, painful, and warm to touch. 7. Your physician has reviewed your pre-procedure medications. Please continue to take those medications as previously ordered. You will be given specific information/education regarding any changes to your medications before leaving. Activity:: Activity as Tolerated Diet:: As Tolerated Discharge Orders Discharge Orders: Discharge Order (Routine); Ordered 05/29/22 Ordered By: Jesus Roblero DS: Diagnosis Discharge Diagnosis (1) Encounter for colonoscopy due to history of colonic polyp: Status: Acute Asessment and Plan: My office will contact you with biopsy results
--- NOTE | 2022-05-29 10:06 | W.COLOREPORT ---
Colonoscopy Report Date of procedure: 05/29/22 Pre-op diagnosis general: screening colonoscopy Post-op diagnosis procedure note: other (colon polyps) Surgeon: Jesus Roblero Anesthesia Type: General:No Airway Estimated blood loss (mL): 10 Pathology: other (colon polyps at 55 cm x2) Complications: None Disposition: same day Indications: Drew Bobo is 61-year-old male who is here for follow-up screening colonoscopy Prep: Miralax/Dulcolax Procedure Start Time: 12:50 Procedure End Time: 13:13 Retraction Time: 14 Procedure Description: After the induction of monitored anesthetic care, and with the patient in left lateral decubitus position, I began by performing an external anorectal exam.? Perineum and skin were normal, as was the anal verge.? There was no evidence of external hemorrhoids.? Next, I performed a digital rectal exam.? I did not appreciate any abnormal findings.? Next, I advanced a colonoscope into the rectal vault.? I performed retroflexion.? I did mpt see signs of pathologic internal hemorrhoids.? Using insufflation, I then advanced the colonoscope beyond the rectal folds and into the sigmoid colon before advancing towards the cecum.? The quality of the prep was excellent.? The scope was noted to be in the cecum by identification of the ileocecal valve and appendiceal orifice.? I then began withdrawing the colonoscope using repeated irrigation as necessary for full evaluation of the colonic mucosa. Around 55 cm from the anal verge I identified a 0.5 cm polyp. There was another one in very close proximity. ?They appeared sessile in character. ?I was able to remove this with a cold forceps. ?I examined the sites, and there was minimal bleeding. ?Once this was completed, I continued to withdraw the scope and examine the remainder of the colonic mucosa.?Once the scope was withdrawn to the level of the rectum, great care was taken to examine portions of the rectal folds.? Finally, the scope was withdrawn and the patient was brought to the same-day surgery recovery unit as the anesthetic wore off. ?The findings and instructions were shared with the patient prior to discharge.
[2022-05-29 11:35] VITALS: BP 118/81; PULSE 55; RESP 18; TEMP 36.6; O2SAT 99
[2022-05-29] MEDS: Lactated Ringers 1,000 ML 80 ML IV (11:57)
--- NOTE | 2022-05-29 12:03 | ANES.PREOP_ITS ---
General Info Date of Service Date Performed: 05/29/22 Height: 6 ft Weight: 105.1 kg Body Mass Index (BMI): 31.4 Surgical Procedure: Operation Date: 05/29/22 13:05 Proposed Procedure Side Surgeon carolina Roblero MD Meds Allergies and Home Medications Allergies Allergy/AdvReac Type Severity Reaction Status Date / Time No Known Drug Allergies Allergy Verified 05/29/22 11:44 Home Medication Medication Instructions Recorded ibuprofen 400 mg tablet 400 mg PO Q6H PRN #120 tab-caps 04/11/19 aspirin 81 mg tablet,delayed 81 mg PO DAILY #90 tabs 04/08/21 release (Adult Aspirin Regimen) tadalafil 20 mg tablet (Cialis) 20 mg PO DAILY PRN sexual activity 03/18/22 #30 tabs tamsulosin 0.4 mg capsule 0.4 mg PO DAILY urination #90 caps 03/18/22 Current Visit Medications: Current Medications Generic Name Dose Route Start Last Admin Trade Name Freq PRN Reason Stop Dose Admin Hyoscyamine Sulfate 0.125 mg 05/29/22 10:06 Hyoscyamine 0.125 Mg Sl/Oral/Chew SL DIRECTED PRN Ringer's Solution 1,000 mls @ 80 mls/hr 05/29/22 06:00 05/29/22 11:57 IV 06/27/22 23:59 80 mls/hr INFUSION RUDOLPH Administration IV Miscellaneous Supplies 1 each 05/29/22 06:00 Iv Access IV 06/27/22 23:59 DIRECTED RUDOLPH Ondansetron HCl 4 mg 05/29/22 10:06 Ondansetron 4 Mg/2 Ml Vial IVP Q4H PRN PRN Nausea / Vomiting Sodium Chloride 0 ml 05/29/22 06:00 Normal Saline Flush 10 Ml Syr IV 06/27/22 23:59 PRN PRN Sodium Chloride 0 ml 05/29/22 06:00 Normal Saline 10 Ml Vial IJ 06/27/22 23:59 DIRECTED PRN Sterile Water 0 ml 05/29/22 06:00 Water,Injection,Sterile 10 Ml Vial IJ 06/27/22 23:59 DIRECTED PRN PFSH Active Problems Active Problems: Problem Status Onset Code History of placement of stent in LAD coronary artery 04/02/20 Z95.5 CAD (coronary artery disease) 04/02/[address] elevation myocardial infarction (STEMI) I25.2 Right inguinal hernia K40.90 Encounter for colonoscopy due to history of colonic polyp Z12.11, Z86.010 Medical History Medical History Adjustment disorder with mixed anxiety and depressed mood (02/02/17) Anxiety (03/19/17) Complex tear of meniscus of right knee as current injury (02/09/17) Depression (03/19/17) Erectile dysfunction Foreign body (FB) in soft tissue History of retained foreign body fully removed Hypercholesterolemia Lower urinary tract symptoms (LUTS) Pre-operative clearance PTSD (post-traumatic stress disorder) (05/12/17) Routine general medical examination at a health care facility Sleep apnea pt states if If sleep on back I get apnea Splinter in skin Medical History Comments:: Pt states apneic when positioned on back and past surgeries where it took awhile to wake up; gloria daily Surgical History Surgical History (Updated 05/29/22 @ 11:47 by Jesusita Alvarez) Appendectomy Arthroplasty of knee no TKA ..Arthroscopy right knee Colonoscopy - MAC (04/13/17) L hand surgery (08/17/87) Tobacco Smoking/Tobacco Use Status: Never Alcohol Alcohol Intake: current Alcohol intake frequency: a few times a week Substance Use Substance use: Daily Substance use type: marijuana Vital Signs and Lab Results Vital Signs Most Recent Vital Signs in EMR: Most Recent Vital Signs Temp Pulse Resp BP Pulse Ox 36.6 C 55 L 18 118/81 99 05/29/22 11:35 05/29/22 11:35 05/29/22 11:35 05/29/22 11:35 05/29/22 11:35 Lab Results Blood Type / Crossmatch: No Data to Display Complete Blood Count: No Data to Display Complete Metabolic Panel: No Data to Display Liver Function Panel: No Data to Display Coagulation Panel: No Data to Display Cardiac Panel: No Data to Display Arterial Blood Gas: No Data to Display Venous Blood Gas: No Data to Display Pancreas Panel: No Data to Display Thyroid Panel: No Data to Display Infectious Disease: No Data to Display Blood Cultures: No Data to Display Toxicology Panel: No Data to Display Imaging and Studies Imaging and Studies Study information below may be from another EMR and interpreted by another provider. Please see original notes in EMR for more complete details. EKG Summary: Conclusion Sinus rhythm...normal P axis, V-rate 50- 99 Ventricular premature complex...V complex w/ short R-R interval Low voltage Poor R wave progression 05/20/22 Stress Test Summary: Stress results: Maximal heart rate during stress was 156bpm (95% of maximal predicted heart rate). The maximal predicted heart rate was 164bpm. The target heart rate was achieved. There is a normal resting blood pressure with an appropriate response to stress. The rate-pressure product for the peak heart rate and blood pressure was 27030lq Hg/min. The patient experienced no chest pain during stress. Exercise capacity is above normal for age. Stress ECG: TREADMILL PORTION OF STRESS TEST ENDED IN 14 MINUTES & 1 SECOND. NORMAL HEART RATE AND BLOOD PRESSURE RESPONSE TO EXERCISE MAX HR = 156 % OF TARGET = 95 FREQUENT PVCs IN COUPLETS AND RUNS. 6 BEAT RUNS OF V-TACH NOTED AT 2 MINUTES RECOVERY TIME. APPROXIMATE METS ACHIEVED = 14.86 NO ANGINA NO SIGNIFICANT ST SEGMENT CHANGES ABOVE AVERAGE FUNCTIONAL CAPACITY FOR EXERCISE 02/10/19 Other Study Summary:: 05/20/22 Cardiac clearance, see note in [facility] Anesthesia Assessment and Plan Anesthesia History Personal History: No History of Anesthesia Complications Family History: No Family History of Anesthesia Complications Exercise Tolerance Exercise Tolerance: Metabolic Equivalents>4 Pertinent Negatives Pertinent Negatives: No Symptoms of GERD, No Major Cardiovascular Symptoms or Complaints, No Major Pulmonary Symptoms or Complaints and No History of CVA/TIA Cardiac & Pulmonary Exam Cardiac Exam: Normal S1/S2 Heart Sounds Pulmonary Exam: Clear Bilateral Breath Sounds Cardiac and Pulmonary Comment:: Hx of apnea when lying flat Always sleeps on his side. Implantable Cardiac Device Does patient have a Pacemaker or an ICD?: No Airway Exam Known Difficult Airway: No Mallampati Class: 3 Mouth Opening: Normal (> 3cm) Thyromental Distance: Greater than 3 cm Neck Range of Motion: Full ROM Neck Circumference: Normal Teeth Condition: Normal Dentition ASA Classification ASA Score: ASA 2 Emergency Case?: No NPO Status NPO Status: NPO Clears >2 hours, Solids >8 hours Anesthesia Plan Resuscitation Status: Full Code Anesthesia Technique: General Anesthesia Airway Planned: Natural Airway Monitors Used: Standard Monitors
[2022-05-29 12:14] VITALS: BMI 31.4
[2022-05-29 13:06] VITALS: BP 127/67; PULSE 56; RESP 16; TEMP 36.5; O2SAT 97
--- NOTE | 2022-05-29 13:08 | BOWEL_PTH ---
PATIENT: Drew Bobo LOC: [facility] U#:[id number] AGE/SX: 61/M ROOM: RE05/29/[address]: Jesus Roblero MD : [id number] BED: DIS: 05/29/2022 SPEC #: [id number] RECD: 05/29/22 17:30 STATUS: CANDELARIA REQ #: [id number] BOB: 05/29/22 13:[address]: Jesus Roblero DEPT: Surgical Specimen RECD BY: Leida Payne ENTERED: 05/29/22 17:30 SP TYPE: Bowel OTHR DR: Petra Mckee APRN Tissues: 1 - BIOPSY BOWEL Procedures: GROSS AND MICRO LEVEL 4 Comments: [id number]
[2022-05-29 13:23] VITALS: BP 117/81; PULSE 64; RESP 16; TEMP 36.5; O2SAT 98
--- NOTE | 2022-05-29 13:53 | W.ANESPOSTOP ---
Postoperative Evaluation Date, Time and Location Date Performed: 05/29/22 Time Performed: 13:53 Patient Location: Day Surgery Unit Vital Signs Most Recent Imported Vital Signs: Most Recent Vital Signs Temp Pulse Resp BP Pulse Ox 36.5 C 64 16 117/81 98 05/29/22 13:23 05/29/22 13:23 05/29/22 13:23 05/29/22 13:23 05/29/22 13:23 Pain Score Most Recent Pain Score: Most Recent Pain Score Pain Level 0 05/29/22 13:23 Assessment Mental Status: Awake (Alert & Oriented to Patient Baseline) Airway and Respiratory Function: Patent airway with normal (patient baseline) respiratory exam Cardiovascular Function: Hemodynamically Stable Hydration Status: Adequately Hydrated Nausea & Vomiting: No Nausea or Vomiting Pain: Pt. Denies Any Pain Peripheral Nerve Block: Patient did not receive a nerve block Teaching Patient Teaching: Discussed the importance of using CPAP/BiPAP during any sleep period
== END 2022-05-29 14:12 | disposition home or self-care (01) ==
PROVIDERS: PCP Nurse Practitioner; Visit Provider Surgery
PROC: 0DJD8ZZ Inspection of Lower Intestinal Tract, Via Natural or Artificial Opening Endoscopic (ICD-10-PCS; CPT 45378; principal; 2022-05-29 13:00)
DX: Z12.11 Encounter for screening for malignant neoplasm of colon (principal); K63.5 Polyp of colon; Z86.010 Personal history of colon polyps; I25.10 Atherosclerotic heart disease of native coronary artery without angina pectoris; E78.00 Pure hypercholesterolemia, unspecified; K63.89 Other specified diseases of intestine
CPT/HCPCS: 45380; 88305; J2704

== ENCOUNTER 2022-08-25 03:13 | Outpatient (CLI) | payer MEDICARE, MEDICAID, SELFPAY ==
[2022-08-25 08:40] LABS: ALT 31 U/L (16-63); AST 27 U/L (15-37); Albumin 4.2 g/dL (3.4-5.0); Alkaline Phosphatase 63 U/L (46-116); BUN 12 mg/dL (7-18); Bilirubin, Total 0.5 mg/dL (0.2-1.0); CREATININE 0.9 mg/dL (0.70-1.30); Calculated LDL 135 mg/dL (<100); Chloride 104 mmol/L (98-107); Cholesterol 208 mg/dL (<200); Estimated GFR 98.38 (mL/min/1.73m2); Glucose 130 mg/dL (74-106); HDL Cholesterol 42 mg/dL (40-60); Potassium 4.2 mmol/L (3.5-5.1); Sodium 139 mmol/L (136-145); Total Protein 7.4 g/dL (6.4-8.2); Triglyceride 155 mg/dL (<150)
== END 2022-08-25 03:14 | disposition home or self-care (01) ==
LOC: LBO 03:13
PROVIDERS: PCP Nurse Practitioner; Visit Provider Nurse Practitioner
DX: I25.10 Atherosclerotic heart disease of native coronary artery without angina pectoris (principal); R73.03 Prediabetes
CPT/HCPCS: 36415; 80053; 80061

== ENCOUNTER → 2023-03-17 10:35 | Outpatient (BNVA) | payer MEDICARE, MEDICAID, SELFPAY | PROVIDERS: PCP Nurse Practitioner; Referring Provider Nurse Practitioner; Visit Provider Urology | DX: R39.89 Other symptoms and signs involving the genitourinary system (principal) | CPT/HCPCS: 99213 ==

== ENCOUNTER → 2023-05-26 10:35 | Outpatient (BNVA) | payer MEDICARE, MEDICAID, SELFPAY | PROVIDERS: PCP Nurse Practitioner; Referring Provider Nurse Practitioner; Visit Provider Internal Medicine Cardiovascular Disease | DX: E78.00 Pure hypercholesterolemia, unspecified (principal); I25.10 Atherosclerotic heart disease of native coronary artery without angina pectoris | CPT/HCPCS: 99213 ==

== ENCOUNTER → 2024-03-22 10:38 | Outpatient (BNVA) | payer MEDICARE, MEDICAID, SELFPAY | PROVIDERS: PCP Nurse Practitioner; Referring Provider Nurse Practitioner; Visit Provider Urology | DX: N52.9 Male erectile dysfunction, unspecified (principal); R39.89 Other symptoms and signs involving the genitourinary system | CPT/HCPCS: 99213 ==

== ENCOUNTER 2024-05-31 08:09 | Outpatient (CLI) | payer MEDICARE, MEDICAID, SELFPAY ==
--- NOTE | 2024-05-31 08:00 | RT.EKG_ITS ---
APPROVED REPORT Exam: Resting ECG Reason for Exam: CAD Patient Location: O HR:50 bpm ECG Measurements Heart Rate 50 AXIS MS 165 P 25 QRSd 103 QRS -15 QT 405 T 7 QTc 370 Conclusion Sinus rhythm...normal P axis, V-rate 50- 99 Low voltage Consider anterior infarct...Q >30mS in V2-V5
== END 2024-05-31 08:10 | disposition home or self-care (01) ==
LOC: DI.CARD 08:10
PROVIDERS: PCP Nurse Practitioner; Visit Provider Internal Medicine Cardiovascular Disease
DX: I25.10 Atherosclerotic heart disease of native coronary artery without angina pectoris (principal)
CPT/HCPCS: 93010

== ENCOUNTER → 2024-05-31 10:39 | Outpatient (BNVA) | payer MEDICARE, MEDICAID, SELFPAY | PROVIDERS: PCP Nurse Practitioner; Referring Provider Nurse Practitioner; Visit Provider Internal Medicine Cardiovascular Disease | DX: I25.10 Atherosclerotic heart disease of native coronary artery without angina pectoris (principal) | CPT/HCPCS: 93005; 99213 ==

== ENCOUNTER → 2024-07-26 10:04 | Outpatient (BNVA) | payer MEDICARE, SELFPAY | PROVIDERS: PCP Nurse Practitioner; Referring Provider Nurse Practitioner; Visit Provider Surgery | DX: K46.9 Unspecified abdominal hernia without obstruction or gangrene (principal) | CPT/HCPCS: 99214 ==

== ENCOUNTER 2024-08-25 04:47 | Outpatient (CLI) | payer MEDICARE, SELFPAY ==
[2024-08-25 08:26] LABS: HCT 46.2 % (40.0-50.0); HGB 15.8 g/dL (13.5-17.5); MCH 30.1 pg (27.0-33.0); MCHC 34.2 % (32.0-36.0); MCV 88 fL (80-95); MPV 9.3 fL (8.0-11.0); Platelet Count 223 10^3/uL (130-400); RBC 5.25 10^6/uL (4.36-5.78); RDW 12.5 % (11.8-14.1); RDW-SD 39.8 fL
[2024-08-25 08:57] LABS: ALT 26 U/L (16-63); AST 20 U/L (15-37); Albumin 4.1 g/dL (3.4-5.0); Alkaline Phosphatase 59 U/L (46-116); Anion Gap 5.6 mmol/L (3-11); BUN 16 mg/dL (7-18); Bilirubin, Total 0.33 mg/dL (0.2-1.0); CO2 31.4 mmol/L (21.0-32.0); CREATININE 1.1 mg/dL (0.70-1.30); Calcium 9.3 mg/dL (8.5-10.1); Calculated LDL 143 mg/dL (<100); Chloride 105 mmol/L (98-107); Cholesterol 204 mg/dL (<200); Estimated GFR 76.37 (mL/min/1.73m2); Glucose 137 mg/dL (74-106); HDL Cholesterol 40 mg/dL (40-60); Potassium 4.6 mmol/L (3.5-5.1); Sodium 142 mmol/L (136-145); Total Protein 7.5 g/dL (6.4-8.2); Triglyceride 108 mg/dL (<150)
[2024-08-25 09:14] LABS: Hemoglobin A1C 5.7 % (<5.7)
== END 2024-08-25 04:48 | disposition home or self-care (01) ==
LOC: LBO 04:47
PROVIDERS: PCP Nurse Practitioner; Visit Provider Nurse Practitioner
DX: R73.03 Prediabetes (principal); I25.2 Old myocardial infarction
CPT/HCPCS: 36415; 80053; 80061; 85027; 83036

== ENCOUNTER 2024-08-31 12:01 | Day surgery (SDC) | payer MEDICARE, SELFPAY ==
--- NOTE | 2024-08-30 18:29 | HPE_ITS ---
Assessment and Plan Assessment and plan (1) Right inguinal hernia: Status: Acute Assessment and plan: We reviewed the plan for a right sided inguinal hernia repair by way of an open approach with a permanent mesh. Drew had the chance to ask any other questions. I think we can proceed with hernia repair as planned. History of Present Illness History of Present Illness Chief Complaint: Right inguinal hernia Narrative: Drew has a known right sided inguinal hernia. he has noticed the lump is increased in size, and it has become more uncomfortable with a number of different activities. He denies any obstructive symptoms like nausea or vomiting. He describes the pain in his groin as sharp and aching. It tends to be a little bit better when he pushes on the area to provide support during Valsalva or coughing. Since his last office visit, there have been no significant interval changes to the history. PFSH All Active Problems Pre-diabetes (Acute) Cataract, right (Acute ~07/2022) Nuclear sclerotic cataract of left eye (Acute ~07/2022) History of placement of stent in LAD coronary artery (Acute 04/02/20) CAD (coronary artery disease) (Chronic 04/02/20) one vessel (LAD) stented History of ST elevation myocardial infarction (STEMI) (Acute) Right inguinal hernia (Acute) Encounter for colonoscopy due to history of colonic polyp (Acute) Medical History Sleep apnea pt states if If sleep on back I get apnea Pre-operative clearance Routine general medical examination at a health care facility History of retained foreign body fully removed Splinter in skin Foreign body (FB) in soft tissue Lower urinary tract symptoms (LUTS) Erectile dysfunction Hypercholesterolemia Adjustment disorder with mixed anxiety and depressed mood (02/02/17) Anxiety (03/19/17) Complex tear of meniscus of right knee as current injury (02/09/17) Depression (03/19/17) PTSD (post-traumatic stress disorder) (05/12/17) Surgical History L hand surgery (08/17/87) Colonoscopy - MAC (04/13/17) Arthroplasty of knee no TKA ..Arthroscopy right knee Appendectomy Family History Mother Diabetes Father , [place] Heart disease Sister No problems noted. Sister No problems noted. Sister No problems noted. Sister No problems noted. Sister No problems noted. Brother No problems noted. Brother No problems noted. Brother No problems noted. Brother No problems noted. Brother No problems noted. Social History Smoking/Tobacco Use Status: Never Smoking risk assessment performed?: Yes Alcohol Intake: current Alcohol Intake frequency: 0-2 drinks per day Drug use: Daily Substance use type: marijuana Counseling given: No Adopted: No Caregiver/Support person: No Foster care: No Household members: children Housing: house Number of Children: 3 number of grandchildren: 0 Communication Needs: None Education Level: other Details: masters degrees and PHD in biology Do you need help understanding health information?: Rarely current occupation: Disability Pets and animals: Yes Pets and animals: dog(s) Sexually active: Yes Do you think of yourself as: bisexual Current gender identity: male What is your relationship status?: How often do you talk on the phone with friends or family?: once per week How often do you get together with friends or relatives?: once per week Do you belong to any clubs or organized social groups?: no Panel score (0-1 are the most socially isolated patients): 1 What type of physical activity do you participate in: walking, regular exercise and other Details: gardening Duration: 30-45 minutes/day Frequency: daily Seatbelt use: always Drive intox or ride w/intox m48/m60 tank driver: No Water heater temp set <120 deg: Yes Working smoke detector in home: Yes Fire extinguisher in home: Yes Carbon monox detector in home: Yes Firearms in home: Yes Firearms unloaded and locked: No Do you feel safe at home: Yes Do you feel safe in your relationship?: Yes Meds Allergies and Home Medications Allergies Allergy/AdvReac Type Severity Reaction Status Date / Time No Known Allergies Allergy Verified 08/31/24 12:22 Home Medications ?Medication ?Instructions ?Recorded ?Confirmed ?Type aspirin 81 mg tablet,delayed See Rx Instructions .Route 10/26/23 08/31/24 Rx release .COMPLEX #90 tabs tadalafil 20 mg tablet (Cialis) 20 mg PO DAILY PRN sexual activity 03/22/24 08/31/24 Rx #30 tabs tamsulosin 0.4 mg capsule 0.4 mg PO DAILY urination #90 caps 03/22/24 08/31/24 Rx ibuprofen 400 mg tablet See Rx Instructions .Route 07/13/24 08/31/24 Rx .COMPLEX #120 tabs saw palmetto 450 mg capsule 450 mg PO DAILY 07/26/24 08/29/24 History Exam Const General: cooperative, healthy appearing and not in acute distress Neck Neck: normal visual inspection, no lymphadenopathy and supple Thyroid: thyroid normal Resp Effort & Inspection: normal respiratory effort Auscultation: clear to auscultation bilaterally Cardio Jugular venous pressure: no JVD Rate: regular rate Rhythm: regular rhythm Heart Sounds: S1 normal and S2 normal GI Inspection: normal to inspection Palpation: soft, no guarding, hernia (Reducible right inguinal) and nontender Percussion: normal to percussion Auscultation: normal bowel sounds Neuro General: patient alert, patient awake and patient oriented x3 Psych Appearance: grossly normal
--- NOTE | 2024-08-30 18:31 | PDOC.DSDIS_ITS ---
Date of service: 08/31/24 Discharge Plan Disposition Patient Disposition: Home Condition: Good Discharge Details Reason For Visit: Right inguinal hernia repair with mesh Attending Provider: Jesus Roblero Primary Care Provider: Petra Mckee Home Meds and New Rx's Prescriptions: New tramadol 50 mg tablet 50 mg PO Q8H PRNQty: 12 0RF Rx Instructions: Take 1 tablet by mouth up to every 8 hours if needed for severe pain Continued tadalafil [Cialis] 20 mg tablet 20 mg PO DAILY PRN (Reason: sexual activity) Qty: 30 5RF Rx Instructions: administer approximately 30min before sexual activity; do not use more than 1 dose per 24hrs tamsulosin 0.4 mg capsule 0.4 mg PO DAILY Qty: 90 4RF ibuprofen 400 mg tablet See Rx Instructions .ROUTE .COMPLEX Qty: 120 6RF Dose Instruction: TAKE ONE TABLET BY MOUTH EVERY 6 HOURS NEEDED Rx Instructions: TAKE ONE TABLET BY MOUTH EVERY 6 HOURS NEEDED saw palmetto 450 mg capsule 450 mg PO DAILY Rx Instructions: give with food (meal/snack) aspirin 81 mg tablet,delayed release (DR/EC) See Rx Instructions .ROUTE .COMPLEX Qty: 90 3RF Dose Instruction: TAKE ONE TABLET BY MOUTH ONCE DAILY Rx Instructions: TAKE ONE TABLET BY MOUTH ONCE DAILY Discharge Instructions Instructions: Groin Hernia Repair (DC) Additional Instructions: Drew, was very nice seeing you today, and I hope you make a quick recovery from this hernia repair. Everything went very smoothly, we were able to get the hernia reduced, it is everything repaired with a mesh just as we discussed before hand. Expect to get some bruising in the area. That is extremely common, nothing necessarily to be alarmed about. The pain should get a little better each day, and you should be up and moving around a little bit getting some basic exercise through walking. When you are resting, try to lay flat keep her pelvis elevated, which will help with some swelling after surgery. If you need anything at all, or have any questions, please do not hesitate to call at a ny time, otherwise we look forward to seeing you in the office on the 13 09. Resume all of your regular medications. 2. Alternate heating pads and ice packs over the surgical site as needed for pain and swelling. 3. Alternate over the counter tylenol and ibuprofen every 6 hours for the first two days, then use as needed. Use the prescription for tramadol if needed for more severe pain . 4. Leave bandage in place for 24 hours, then remove. 5. Shower with warm soapy water. Pat dry. Use a bandaid if needed to protect your clothing. 6. No soaking or tub baths until I see you in the office. 7. No heavy lifting until I see you in the office. 8. Call the office (or go directly to the emergency room after hours) if you notice any of the following: Develop chills (warm to touch), or if you have a thermometer and your temperature is above 101 Difficulty breathing or difficultly swallowing Persistent vomiting Any bleeding ? exceeding one tablespoon 9. Call your physician if the site where your intravenous was started becomes red, swollen, painful, and warm to touch. Activity:: no heavy lifting Remove Dressings/Wound Care:: 24 hours Shower/Bathe:: 24 hours Diet:: As Tolerated Discharge Orders Discharge Orders: Discharge Order (Routine); Ordered 08/30/24 Ordered By: Jesus Roblero DS: Diagnosis Discharge Diagnosis (1) Right inguinal hernia: Status: Acute Asessment and Plan: Status post inguinal hernia repair; outpatient postoperative follow-up
--- NOTE | 2024-08-30 18:34 | W.PM.OP ---
Operative Note Operative Note PRE-OP DIAGNOSIS: Right inguinal hernia POST-OP DIAGNOSIS: same PROCEDURE: Right sided open inguinal hernia repair with mesh SURGEON: Jesus Roblero LAB COURIER: Becky Lay ANESTHESIA TYPE: Local By Surgeon, General LMA/ETT and Other (right inguinal TAP block) Refer to Anesthesia Record ESTIMATED BLOOD LOSS: 15 PATHOLOGY: none sent COMPLICATIONS: None Patient was transported to: PACU Patient's condition: stable Implants: Bard PerFix light large plug and patch Indications: Drew is a 63-year-old male with a symptomatic right-sided inguinal hernia Findings: Indirect right inguinal hernia Procedure Description: I began by confirming the correct site with the patient. We moved back to the operating room, Drew was assisted onto the OR table. Great care was taken to make sure that he was padded and supported appropriately. General anesthesia was induced without any issues. Anesthesia service then provided a real-time ultrasound guided right inguinal tap block. The surgical site was then prepped and draped in the usual fashion. I began by making an oblique incision over the right inguinal region. I dissected down through the skin to the deep fascia. Next, I incised the fascia along the length of the inguinal canal to the external ring. I then carefully identified the ilioinguinal nerve and divided. Once this was complete, I bluntly dissected the shelving edge of the inguinal ligament down towards the pubic tubercle. Here, I encircled all cord structures with a [place] drain. Next, I began dissecting the specific cord structures. Great care was taken to spare the vas deferens and the blood supply to the testicle. Next, I isolated the hernia sac from the other inguinal structures. I reduced it back to its normal anatomic position. This was an indirect inguinal hernia. I then used a large PerFix light mesh plug to obliterate the defect at the internal ring. I fixed in place with interrupted Prolene stitches. Next, I buttressed the posterior floor of the inguinal canal with a large mesh patch. I started by fixing it to the pubic tubercle. Next, I used Prolene sutures to affix it to the shelving edge of the inguinal ligament and the conjoined tendon. Laterally I tacked it to the internal oblique fascia and reconstructed an internal ring without any strain on the cord structures. Once this was complete, I irrigated the surgical field. It appeared hemostatic. I then closed the anterior portion of the fascia to reconstruct the front wall of the inguinal canal. I did this with interrupted Vicryl stitches. Once again, I irrigated the surgical field and inspected for hemostasis. Finally, I approximated the superficial fascia and the deep layers of the skin with absorbable suture. Skin was closed with running subcuticular stitches. Bandages were applied, the patient was awakened and transferred to the recovery unit. Date of Procedure: 08/31/24
[2024-08-31] VITALS (18 sets, daily range): BP systolic 138–161; BP diastolic 72–93; PULSE 47–70; RESP 11–20; TEMP 35.8–36.7; O2SAT 97–100; BMI 32.9
--- NOTE | 2024-08-31 09:13 | ANES.PREOP_ITS ---
General Info Date of Service Date Performed: 08/31/24 Height: 6 ft Weight: 110.2 kg Body Mass Index (BMI): 32.9 Surgical Procedure: Operation Date: 08/31/24 12:10 Proposed Procedure Side Surgeon p Herniorrhaphy Inguinal w/Mesh Right Jesus Roblero MD Meds Allergies and Home Medications Allergies Allergy/AdvReac Type Severity Reaction Status Date / Time No Known Allergies Allergy Verified 08/31/24 12:22 Home Medication ?Medication ?Instructions ?Recorded aspirin 81 mg tablet,delayed See Rx Instructions .Route 10/26/23 release .COMPLEX #90 tabs tadalafil 20 mg tablet (Cialis) 20 mg PO DAILY PRN sexual activity 03/22/24 #30 tabs tamsulosin 0.4 mg capsule 0.4 mg PO DAILY urination #90 caps 03/22/24 ibuprofen 400 mg tablet See Rx Instructions .Route 07/13/24 .COMPLEX #120 tabs saw palmetto 450 mg capsule 450 mg PO DAILY 07/26/24 Current Visit Medications: Current Medications Generic Name Dose Route Start Last Admin Trade Name Freq PRN Reason Stop Dose Admin Acetaminophen 1,000 mg 08/31/24 06:00 Acetaminophen 500 Mg Tab PO 08/31/24 23:59 PREOP RUDOLPH Celecoxib 200 mg 08/31/24 06:00 Celecoxib 200 Mg Cap PO 08/31/24 23:59 PREOP RUDOLPH Gabapentin 600 mg 08/31/24 06:00 Gabapentin 300 Mg Cap PO 08/31/24 23:59 PREOP RUDOLPH Hydromorphone HCl 0.2 mg 08/30/24 18:33 Hydromorphone 1 Mg/Ml Syr IVP 09/29/24 18:32 Q1H PRN PRN Ringer's Solution 1,000 mls @ 0 mls/hr 08/31/24 06:00 IV 08/31/24 23:59 INFUSION RUDOLPH Cefazolin Sodium/Dextrose 2 gm in 50 mls @ 100 mls/hr 08/31/24 06:00 Ancef Duplex IVPB 08/31/24 23:59 PREOP RUDOLPH Ringer's Solution 1,000 mls @ 80 mls/hr 08/31/24 11:00 IV 09/30/24 10:59 INFUSION RUDOLPH IV Miscellaneous Supplies 1 each 08/31/24 06:00 Iv Access IV 08/31/24 23:59 DIRECTED RUDOLPH Sodium Chloride 0 ml 08/31/24 06:00 Normal Saline Flush 10 Ml Syr IV 08/31/24 23:59 PRN PRN Sodium Chloride 0 ml 08/31/24 06:00 Normal Saline 10 Ml Vial IJ 08/31/24 23:59 DIRECTED PRN Sterile Water 0 ml 08/31/24 06:00 Water,Injection,Sterile 10 Ml Vial IJ 08/31/24 23:59 DIRECTED PRN Tramadol HCl 50 mg 08/30/24 18:33 Tramadol 50 Mg Tab PO 09/29/24 18:32 Q6H PRN PRN Pain PFSH Active Problems Active Problems: Problem Status Onset Code Pre-diabetes Acute R73.03 Cataract, right Acute ~07/2022 H26.9 Nuclear sclerotic cataract of left eye Acute ~07/2022 H25.12 History of placement of stent in LAD coronary artery Acute 04/02/20 Z95.5 CAD (coronary artery disease) Chronic 04/02/[address] elevation myocardial infarction (STEMI) Acute I25.2 Right inguinal hernia Acute K40.90 Encounter for colonoscopy due to history of colonic polyp Acute Z12.11, Z86.010 Medical History Medical History Sleep apnea pt states if If sleep on back I get apnea Pre-operative clearance Routine general medical examination at a health care facility History of retained foreign body fully removed Splinter in skin Foreign body (FB) in soft tissue Lower urinary tract symptoms (LUTS) Erectile dysfunction Hypercholesterolemia Adjustment disorder with mixed anxiety and depressed mood (02/02/17) Anxiety (03/19/17) Complex tear of meniscus of right knee as current injury (02/09/17) Depression (03/19/17) PTSD (post-traumatic stress disorder) (05/12/17) Medical History Comments:: Pt states apneic when positioned on back and past surgeries where it took awhile to wake up; gloria daily Surgical History Surgical History (Updated 08/31/24 @ 13:31 by Florence Marques) Hx of right inguinal hernia repair (~08/2024) L hand surgery (08/17/87) Colonoscopy - MAC (04/13/17) Arthroplasty of knee no TKA ..Arthroscopy right knee Appendectomy Tobacco Smoking/Tobacco Use Status: Never Alcohol Alcohol Intake: current Alcohol intake frequency: 0-2 drinks per day Substance Use Substance use: Daily Substance use type: marijuana Vital Signs and Lab Results Vital Signs Most Recent Vital Signs in EMR: Temp Pulse Resp BP Pulse Ox 36.2 C L 47 L 16 138/72 98 08/31/24 12:07 08/31/24 12:07 08/31/24 12:07 08/31/24 12:07 08/31/24 12:07 Lab Results Blood Type / Crossmatch: No Data to Display Complete Blood Count: White Blood Count 7.20 10^3/uL (4.4-10.8) 08/25/24 08:12 Red Blood Count 5.25 10^6/uL (4.36-5.78) 08/25/24 08:12 Hemoglobin 15.8 g/dL (13.5-17.5) 08/25/24 08:12 Hematocrit 46.2 % (40.0-50.0) 08/25/24 08:12 Platelet Count 223 10^3/uL (130-400) 08/25/24 08:12 Complete Metabolic Panel: Sodium 142 mmol/L (136-145) 08/25/24 08:12 Potassium 4.6 mmol/L (3.5-5.1) 08/25/24 08:12 Chloride 105 mmol/L (98-107) 08/25/24 08:12 Carbon Dioxide 31.4 mmol/L (21.0-32.0) 08/25/24 08:12 BUN 16 mg/dL (7-18) 08/25/24 08:12 Creatinine 1.1 mg/dL (0.70-1.30) 08/25/24 08:12 Est GFR (CKD-EPI 2020) 76.37 (mL/min/1.73m2) 08/25/24 08:12 Calcium 9.3 mg/dL (8.5-10.1) 08/25/24 08:12 Albumin 4.1 g/dL (3.4-5.0) 08/25/24 08:12 Glucose 137 mg/dL (74-106) H 08/25/24 08:12 Hemoglobin A1c 5.7 % (<5.7) 08/25/24 08:12 Liver Function Panel: Alanine Aminotransferase (ALT/SGPT) 26 U/L (16-63) 08/25/24 08: 12 Aspartate Amino Transf (AST/SGOT) 20 U/L (15-37) 08/25/24 08:12 Coagulation Panel: No Data to Display Cardiac Panel: No Data to Display Arterial Blood Gas: No Data to Display Venous Blood Gas: No Data to Display Pancreas Panel: No Data to Display Thyroid Panel: No Data to Display Infectious Disease: No Data to Display Blood Cultures: No Data to Display Toxicology Panel: No Data to Display Imaging and Studies Imaging and Studies Study information below may be from another EMR and interpreted by another provider. Please see original notes in EMR for more complete details. EKG Summary: Conclusion Sinus rhythm...normal P axis, V-rate 50- 99 Ventricular premature complex...V complex w/ short R-R interval Low voltage Poor R wave progression 05/20/22 Stress Test Summary: Stress results: Maximal heart rate during stress was 156bpm (95% of maximal predicted heart rate). The maximal predicted heart rate was 164bpm. The target heart rate was achieved. There is a normal resting blood pressure with an appropriate response to stress. The rate-pressure product for the peak heart rate and blood pressure was 04683lv Hg/min. The patient experienced no chest pain during stress. Exercise capacity is above normal for age. Stress ECG: TREADMILL PORTION OF STRESS TEST ENDED IN 14 MINUTES & 1 SECOND. NORMAL HEART RATE AND BLOOD PRESSURE RESPONSE TO EXERCISE MAX HR = 156 % OF TARGET = 95 FREQUENT PVCs IN COUPLETS AND RUNS. 6 BEAT RUNS OF V-TACH NOTED AT 2 MINUTES RECOVERY TIME. APPROXIMATE METS ACHIEVED = 14.86 NO ANGINA NO SIGNIFICANT [address] SEGMENT CHANGES ABOVE AVERAGE FUNCTIONAL CAPACITY FOR EXERCISE 02/10/19 Other Study Summary:: 05/20/22 Cardiac clearance, see note in [employer] Anesthesia Assessment and Plan Anesthesia History Personal History: No History of Anesthesia Complications Family History: No Family History of Anesthesia Complications Exercise Tolerance Exercise Tolerance: Metabolic Equivalents>4 Pertinent Negatives Pertinent Negatives: No Symptoms of GERD, No Major Cardiovascular Symptoms or Complaints, No Major Pulmonary Symptoms or Complaints and No History of CVA/TIA Cardiac & Pulmonary Exam Cardiac Exam: Normal S1/S2 Heart Sounds Pulmonary Exam: Clear Bilateral Breath Sounds Cardiac and Pulmonary Comment:: Hx of apnea when lying flat Always sleeps on his side. Implantable Cardiac Device Does patient have a Pacemaker or an ICD?: No Airway Exam Known Difficult Airway: No Mallampati Class: 3 Mouth Opening: Normal (> 3cm) Thyromental Distance: Greater than 3 cm Neck Range of Motion: Full ROM Neck Circumference: Normal Teeth Condition: Normal Dentition ASA Classification ASA Score: ASA 2 Emergency Case?: No NPO Status NPO Status: NPO Clears >2 hours, Solids >8 hours Anesthesia Plan Resuscitation Status: Full Code Anesthesia Technique: General Anesthesia Airway Planned: Natural Airway Pain Management: Surgeon and patient request nerve block Monitors Used: Standard Monitors Preoperative Comments:: 63 yo male for open inguinal hernia. Sig PMHx: CAD (stent in LAD), KAIDEN, preDM (a1c 5.7(, depression/PTSD/anxiety. EKG: sinus, low voltage. Stress: negative ECG, frequent vent ectopy. ECHO: LVEF 52%, no sig valve issues. Previous Anes: - colo x 2, prop, natural airway no issues. - knee scope, LMA 5, no issues.
[2024-08-31] MEDS: Gabapentin 300 MG CAP 600 MG PO (12:30)
[2024-08-31] MEDS: Celecoxib 200 MG CAP PO (12:30)
[2024-08-31] MEDS: Acetaminophen 500 MG TAB 1000 MG PO (12:30)
[2024-08-31] MEDS: Lactated Ringers 1,000 ML 80 ML IV (12:46)
[2024-08-31] MEDS: ceFAZolin 2 GM/50 ML BAG IVPB (13:46)
--- NOTE | 2024-08-31 13:56 | W.ANESNERVE ---
Nerve Block Single Injection Procedure Date and Time Date Performed: 08/31/24 Procedure Start: 13:40 Location Where Procedure Performed Procedure Location: Operating Room Procedure Stop: 13:46 Reason Performed: Postoperative Analgesia Requesting Provider: Jesus Roblero Timeout Performed Timeout Performed: Yes Monitoring Used ECG, Blood Pressure, SpO2 and ETCO2 Sterility Sterility: Hand Hygiene, Surgical Cap, Surgical Mask, Sterile Gloves and Chlorhexidine Sedation Given During Procedure Sedation Given (Indicate Dose Given): No Sedation given Patient Mental Status Patient Mental Status: Performed under general anesthesia Nerve Block 1st Nerve Block: Laterality: Right Block Type: TAP Unilateral Ultrasound Image Saved?: Yes Needle / Catheter Used: 100mm SonoPlex II Local Anesthetic Bolus (Indicate Dose Given): Injected in 3-5ml increments after negative blood aspiration and Bupivacaine 0.25% Dose:: 20 ml Additives (Indicate Dose Given): Normal Saline Ultrasound: Sterile probe cover and gel used Nerve Stimulator: Not Used Paresthesia: None Procedure Tolerated: No Complications and Patient tolerated well Procedure Outcome: Successful Performed By: Herman Mishra
[2024-08-31] MEDS: Bupivacaine 0.5% Pres-Free W/EPI 30 ML VIAL (13:57)
--- NOTE | 2024-08-31 16:34 | W.ANESPOSTOP ---
Postoperative Evaluation Date, Time and Location Date Performed: 08/31/24 Time Performed: 16:12 Patient Location: Day Surgery Unit Vital Signs Most Recent Imported Vital Signs: Most Recent Vital Signs Temp Pulse Resp BP Pulse Ox 36 C L 53 L 16 141/78 H 99 08/31/24 16:20 08/31/24 16:20 08/31/24 16:20 08/31/24 16:20 08/31/24 16:20 Pain Score Most Recent Pain Score: Most Recent Pain Score Pain Level 2 08/31/24 16:20 Assessment Mental Status: Awake (Alert & Oriented to Patient Baseline) Airway and Respiratory Function: Patent airway with normal (patient baseline) respiratory exam Cardiovascular Function: Hemodynamically Stable Hydration Status: Adequately Hydrated Nausea & Vomiting: No Nausea or Vomiting Pain: Pt. Denies Any Pain Peripheral Nerve Block: Regional nerve block not resolved at time of post operative discharge
== END 2024-08-31 16:34 | disposition home or self-care (01) ==
LOC: SUR 12:02
PROVIDERS: PCP Nurse Practitioner; Visit Provider Surgery
PROC: (CPT 49505; principal; 2024-08-31 12:00)
DX: K40.90 Unilateral inguinal hernia, without obstruction or gangrene, not specified as recurrent (principal)
CPT/HCPCS: 49505; 64486; C1781; J0665; J0690; J1100; J2250; J2405; J2704

== ENCOUNTER → 2024-09-13 10:35 | Outpatient (BNVA) | payer MEDICARE, SELFPAY | PROVIDERS: PCP Nurse Practitioner; Referring Provider Nurse Practitioner; Visit Provider Surgery | DX: Z48.817 Encounter for surgical aftercare following surgery on the skin and subcutaneous tissue (principal) ==

== ENCOUNTER → 2025-03-21 11:20 | Outpatient (BNVA) | payer MEDICARE, SELFPAY | PROVIDERS: PCP Nurse Practitioner; Referring Provider Nurse Practitioner; Visit Provider Urology ==

== ENCOUNTER → 2025-04-25 08:03 | Outpatient (BNVA) | payer MEDICARE, SELFPAY | PROVIDERS: PCP Nurse Practitioner; Referring Provider Nurse Practitioner; Visit Provider Urology | DX: N52.9 Male erectile dysfunction, unspecified (principal); R39.9 Unspecified symptoms and signs involving the genitourinary system | CPT/HCPCS: 99214 ==

== ENCOUNTER → 2025-05-30 10:42 | Outpatient (BNVA) | payer MEDICARE, SELFPAY | PROVIDERS: PCP Nurse Practitioner; Referring Provider Nurse Practitioner; Visit Provider Internal Medicine Cardiovascular Disease | DX: I25.10 Atherosclerotic heart disease of native coronary artery without angina pectoris (principal) | CPT/HCPCS: 99213 ==